=== PATIENT | female | born 1950 | race Caucasian/White ===

== ENCOUNTER → 2016-10-16 | Outpatient (CLI) | payer MEDICARE ==
[~2016-10-16] MED LIST: AMLO5TAB2 PO; ASPI-650 PO; ATOR40TA78 PO; CARV6.252 PO; CEFD300C37 PO; CLOP75TA22 PO; COLC0.6T37 PO; GLIP5TAB10 PO; HYDR-3138 PO; HYDR25TA6 PO; INSU100I18 SQ-INSULIN; INSU100V8 SQ; LISI40TA PO; METF500T4 PO; METO-95 PO; METO25TA9 PO; NAPR-874 PO; OXYC-302 PO; OXYC5TAB3 PO; POLY17PO5 PO; PROM50SU7; SITA100T PO; SPIR25TA3 PO; ZOLP10TA5 PO; ZONI50CA2 PO
== END | disposition home or self-care (01) ==
LOC: EDSTATUS 13:00 → RAD 13:04
PROVIDERS: ATTEND Psychiatry & Neurology Neurology
DX: J32.0 Chronic maxillary sinusitis (principal); G93.9 Disorder of brain, unspecified
CPT/HCPCS: 70551